=== PATIENT | female | born 2005 | race Asian ===

== ENCOUNTER 2024-07-27 06:38 | Outpatient (REF) | payer OTHER, SELFPAY ==
--- NOTE | ~2024-07-27 | US_ITS ---
EXAMINATION: US PELVIS CLINICAL INFORMATION: SS IUD positioning, pain with thin section COMPARISON: None available. TECHNIQUE: Ultrasound of the pelvis is performed using both transabdominal and transvaginal transducers along with Doppler. Transvaginal imaging is performed due to inadequate visualization transabdominally. FINDINGS: Uterus: The uterus is anteverted and measures 7.8 x 3.1 x 4.5 cm. There is an IUD in the endometrial and would position. The double wall endometrial thickness is 0.7 mm. The uterus is smooth in contour and has normal myometrial echogenicity. No visible fibroid. Adnexa: Both ovaries are visualized. There is normal color flow to the adnexa. There is no ovarian torsion. There is no pelvic ascites or fluid collection. Right ovary measures 4.0 x 2.1 x 2.5 cm. With a volume of 11 mL Left ovary measures 3.6 x 2.3 x 2 point cm. With a volume of 8.3 mL US/US pelvic and transvaginal IMPRESSION: IUD is appropriately positioned Electronically signed by: Kulwinder Laureano MD 07/27/2024 04:44 PM EDT
== END 2024-07-27 06:39 | disposition home or self-care (01) ==
LOC: HO.UMASIMG 06:38
PROVIDERS: Visit Provider Family Medicine
DX: Z30.431 Encounter for routine checking of intrauterine contraceptive device (principal); R10.2 Pelvic and perineal pain
CPT/HCPCS: 76830; 76856

== ENCOUNTER 2024-08-18 06:34 | Outpatient (REF) | payer OTHER, SELFPAY ==
--- NOTE | ~2024-08-18 | US_ITS ---
EXAMINATION: US ABDOMEN COMPLETE CLINICAL INFORMATION: Right upper quadrant abdominal pain. COMPARISON: None available. TECHNIQUE: Real-time imaging of the abdominal viscera. FINDINGS: PANCREAS: Normal. ABDOMINAL AORTA: The proximal, mid, and distal segments are normal in caliber. INFERIOR VENA CAVA: Visualized portions are normal. LIVER: Normal. The liver is normal in size. The liver contour is normal. Parenchymal echogenicity is normal. No focal hepatic lesion. There is no intrahepatic biliary duct dilatation seen. GALLBLADDER: Normal. The gallbladder is physiologically distended without evidence of stones, sludge, polyps, wall thickening or pericholecystic fluid. COMMON BILE DUCT: Normal in caliber measuring 0.2 cm in diameter. RIGHT KIDNEY: Normal. No hydronephrosis. No renal calculi or focal parenchymal lesions. The kidney measures 10.2 cm in maximum dimension. LEFT KIDNEY: Normal. No hydronephrosis. No renal calculi or focal parenchymal lesions. The kidney measures 10.5 cm in maximum dimension. SPLEEN: Normal. The spleen measures 11 cm in maximum dimension. FREE FLUID: None. US/US abdomen complete IMPRESSION: Unremarkable examination. Electronically signed by: Rayray Gutierrez MD 08/18/2024 11:39 AM [facility] Workstation: [id number]
--- NOTE | ~2024-08-18 | US_ITS ---
EXAMINATION: US PELVIS CLINICAL INFORMATION: IUD check. String not visualized on exam. Irregular LMP. COMPARISON: Most recent pelvic ultrasound dated 07/27/2024. TECHNIQUE: Ultrasound of the pelvis is performed using both transabdominal and transvaginal transducers along with Doppler. Transvaginal imaging is performed due to inadequate visualization transabdominally. FINDINGS: UTERUS: The uterus is retroverted and measures 7.8 x 3.8 x 4.7 cm. The double wall endometrial thickness is 0.3 mm. IUD appears appropriately positioned within the endometrial cavity. The uterus is smooth in contour and has normal myometrial echogenicity. No visible fibroid. ADNEXA: Both ovaries are visualized. There is normal color flow to the adnexa. There is no ovarian torsion. Trace right adnexal free fluid. Right ovary measures 2.6 x 1.4 x 2.7 cm. Right ovarian volume of 5.1 mL. Left ovary measures 2.3 x 2.6 x 3.1 cm. Left ovarian volume of 9.8 mL. Dominant left ovarian follicle measuring up to 2.4 cm. Findings are not clinically significant. US/US pelvic and transvaginal IMPRESSION: 1. IUD appropriately positioned within the endometrial cavity. 2. Trace right adnexal free fluid. Electronically signed by: Rayray Gutierrez MD 08/18/2024 11:53 AM [facility]
== END 2024-08-18 06:35 | disposition home or self-care (01) ==
LOC: HO.UMASIMG 06:34
PROVIDERS: Visit Provider Nurse Practitioner Women's Health
DX: Z30.431 Encounter for routine checking of intrauterine contraceptive device (principal); R10.9 Unspecified abdominal pain; R19.7 Diarrhea, unspecified
CPT/HCPCS: 76700; 76830; 76856